=== PATIENT | male | born 2000 | race Caucasian/White ===

== ENCOUNTER 2021-10-08 12:09 | Emergency (ER) | payer OTHER ==
[2021-10-08 13:31] LABS: BASOPHILS % (AUTO) 0.6 %; EOSINOPHILS # (AUTO) 0.3 10^3/uL (0.0-0.7); EOSINOPHILS % (AUTO) 4.6 %; HCT - HEMATOCRIT 42.7 % (42.0-52.0); HGB - HEMOGLOBIN 15.3 g/dL (14.0-18.0); LYMPHOCYTES # (AUTO) 1.7 10^3/uL (1.5-3.5); LYMPHOCYTES % (AUTO) 23.1 %; MEAN CORPUSCULAR HEMOGLOBIN 29.5 pg (27.0-31.0); MEAN CORPUSCULAR HGB CONC 35.8 g/dL (32.0-36.0); MEAN CORPUSCULAR VOLUME 82.3 fL (80.0-94.0); MEAN PLATELET VOLUME 10.5 fL (7.4-11.4); MONOCYTES # (AUTO) 0.5 10^3/uL (0.0-1.0); MONOCYTES % (AUTO) 6.9 %; NEUTROPHILS # (AUTO) 4.7 10^3/uL (1.5-6.6); NEUTROPHILS % (AUTO) 64.5 %; PLT - PLATELET COUNT 269 10^3/uL (130-450); RED BLOOD COUNT 5.19 10^6/uL (4.70-6.10); RED CELL DISTRIBUTION WIDTH 11.9 % (12.0-15.0); WHITE BLOOD COUNT 7.2 x10^3/uL (4.8-10.8)
[2021-10-08 13:40] LABS: BILIRUBIN,URINE NEGATIVE (NEGATIVE); GLUCOSE, URINE (UA) NEGATIVE (NEGATIVE); KETONES,URINE (UA) NEGATIVE (NEGATIVE); LEUKOCYTE ESTERASE, URINE NEGATIVE (NEGATIVE); NITRITE,URINE NEGATIVE (NEGATIVE); OCCULT BLOOD,URINE NEGATIVE (NEGATIVE); PROTEIN,URINE NEGATIVE (NEGATIVE); UROBILINOGEN,URINE 0.2 (NORMAL) E.U./dL (NORMAL)
[2021-10-08 13:41] LABS: CLARITY,URINE CLEAR (CLEAR)
[2021-10-08 13:44] LABS: ALBUMIN 4.4 g/dL (3.2-5.5); ALBUMIN/GLOBULIN RATIO 1.6 (1.0-2.2); BILIRUBIN,TOTAL 1.1 mg/dL (0.2-1.0); CALCIUM 9.6 mg/dL (8.5-10.3); CREATININE 0.9 mg/dL (0.6-1.2); POTASSIUM 4.2 mmol/L (3.5-5.0); TOTAL PROTEIN 7.1 g/dL (6.7-8.2)
--- NOTE | 2021-10-08 14:22 | ED Physician Documentation ---
History of Present Illness - Stated complaint Stated Complaint: ABD PX,DIARRHEA - Chief complaint Chief Complaint: Abd Pain - Additonal information Additional information: 20-year-old male presents emergency department for evaluation of upper abdominal pain and diarrhea. Symptoms began this AM. He has had no fevers or vomiting. He took a dose of Pepto-Bismol as well as ibuprofen and feels mostly resolved. 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 The sick line told him he needed emergency department evaluation. At this time he feels better and would like to be discharged home Denies any pertinent past medical or surgical history. Takes no prescribed medications Review of Systems Constitutional: denies: Fever, Chills Nose: reports: Reviewed and negative Cardiac: reports: Reviewed and negative Respiratory: reports: Reviewed and negative GI: reports: Abdominal Pain, Diarrhea : reports: Reviewed and negative Skin: reports: Reviewed and negative Musculoskeletal: reports: Reviewed and negative PD PAST MEDICAL HISTORY - Allergies Allergies/Adverse Reactions: Allergies Allergy/AdvReac Type Severity Reaction Status Date / Time No Known Drug Allergies Allergy Verified 10/08/21 12:58 PD ED PE NORMAL - General General: Alert and oriented X 3, No acute distress, Well developed/nourished - HEENT HEENT: Moist mucous membranes - Neck Neck: Supple, no meningeal sign, No adenopathy - Cardiac Cardiac: RRR, No murmur - Respiratory Respiratory: No respiratory distress, Clear bilaterally - Abdomen Abdomen: Normal bowel sounds, Soft, Non tender (No abdominal tenderness elicited with light or deep palpation or percussion) - Male Male : Deferred - Back Back: No CVA TTP - Derm Derm: Normal color, Warm and dry - Extremities Extremities: No deformity, No tenderness to palpate, Normal ROM s pain - Neuro Neuro: Alert and oriented X 3, [employer] member other ranks 2-12 intact Eye Opening: Spontaneous Motor: Obeys Commands Verbal: Oriented GCS Score: 15 Results - Vitals Vitals: Vital Signs - 24 hr 10/08/21 12:55 Temperature 36.2 C L Heart Rate 69 Respiratory 16 Rate Blood Pressure 144/84 H O2 Saturation 99 Oxygen O2 Source Room air - Labs Labs: Laboratory Tests 10/08/21 10/08/21 10/08/21 13:24 13:24 13:30 WBC 7.2 RBC 5.19 Hgb 15.3 Hct 42.7 MCV 82.3 MCH 29.5 MCHC 35.8 RDW 11.9 L Plt Count 269 MPV 10.5 Neut # (Auto) 4.7 Lymph # (Auto) 1.7 [place] # (Auto) 0.5 Eos # (Auto) 0.3 Baso # (Auto) 0.0 Absolute Nucleated RBC 0.00 Nucleated RBC % 0.0 Sodium 140 Potassium 4.2 Chloride 103 Carbon Dioxide 29 Anion Gap 8.0 BUN 12 Creatinine 0.9 Estimated GFR (MDRD) 107 Glucose 98 Calcium 9.6 Total Bilirubin 1.1 H AST 30 ALT 60 Alkaline Phosphatase 64 Total Protein 7.1 Albumin 4.4 Globulin 2.7 Albumin/Globulin Ratio 1.6 Lipase 27 Urine Color YELLOW Urine Clarity CLEAR Urine pH 7.0 Ur Specific [place] 1.020 Urine Protein NEGATIVE Urine Glucose (UA) NEGATIVE Urine Ketones NEGATIVE Urine Occult Blood NEGATIVE Urine Nitrite NEGATIVE Urine Bilirubin NEGATIVE Urine Urobilinogen 0.2 (NORMAL) Ur Leukocyte Esterase NEGATIVE Ur Microscopic Review NOT INDICATED Urine Culture Comments NOT INDICATED PD MEDICAL DECISION MAKING - ED course Complexity details: considered differential, d/w patient ED course: Well-appearing 20-year-old male presents emergency department for evaluation of upper abdominal discomfort and diarrhea that began this morning. Symptoms fully resolved following a dose of Pepto-Bismol and ibuprofen. Screening labs are entirely unremarkable. His abdominal exam is also benign with no tenderness elicited. I suspect he likely had a mild viral enteritis as the cause of his symptoms. Given unremarkable abdominal exam and labs will defer advanced imaging. Routine conservative care and emergent return precautions were discussed Departure - Departure Disposition: 01 Home, Self Care Clinical Impression: Upper abdominal pain Diarrhea Qualifiers: Diarrhea type: unspecified type Qualified Code(s): R19.7 - Diarrhea, unspecified Comments: Jason you were seen today in the emergency department because you woke up this morning with some upper abdominal discomfort and then had some diarrhea. You did the right thing by taking ibuprofen and Pepto-Bismol. I suspect they have a mild virus that is because the diarrhea. I expect that this is going to resolve over the next few days. You can continue the Pepto-Bismol if you found it helpful. Over the next 24 hours recommend clear liquids then slowly advance your diet with bananas, rice, applesauce and toast. Return to the emergency department for significantly worsening symptoms, bloody stools, severe abdominal pain or any uncontrolled vomiting
[2021-10-08 14:35] VITALS: BP 137/84
== END 2021-10-08 14:35 | disposition home or self-care (01) ==
LOC: ED 12:09
DX: R10.10 Upper abdominal pain, unspecified (principal); R19.7 Diarrhea, unspecified
CPT/HCPCS: 36415; 80053; 81001; 81003; 83690; 85025; 87086; 99282; 99283

== ENCOUNTER 2022-05-12 09:08 | Outpatient (CLI) | payer OTHER ==
--- NOTE | 2022-05-12 11:50 | MRI Report ---
PROCEDURE: KNEE WO - RT INDICATIONS: LEFT KNEE PATELLAR DISLOCATION, RT KNEE PAIN TECHNIQUE: Noncontrast sagittal PD fast spin echo and T2 fast spin echo with fat saturation, sagittal 3-D spoile d GE with fat saturation; coronal T1 spin echo and PD fast spin echo with fat saturation, and axial P D fast spin echo with fat saturation through the knee. COMPARISON: None. FINDINGS: Image quality: Excellent. Anterior cruciate ligament: Intact. Posterior cruciate ligament: Intact. Medial collateral ligament: Intact. Lateral collateral ligament: Intact. Medial meniscus: Linear intermediate signal intensity is seen in the body of the medial meniscus ext ending to the middle third of the femoral articular surface, which is favored to represent a horizont al oblique meniscal tear rather than intrasubstance degeneration. Lateral meniscus: Intact. Medial and lateral tendons: The semimembranosus tendon insertions appear intact. Visualized portion s of the pes anserinus tendons appear normal. The popliteus tendon appears intact. Iliotibial band appears normal. Anterior structures: Mild patella maxx. The distal quadriceps tendon is grossly intact. A congenital ly shallow trochlear groove is seen with lateral patellar tilting and lateral patellar subluxation. T he tibial tubercle-trochlear groove distance measures approximately 2.2 cm. No significant edema in t he infrapatellar fat pad. Bones: No acute trabecular bone injury or fracture. Medial femorotibial cartilage: Intact. Lateral femorotibial cartilage: Intact. Patellofemoral cartilage: Full-thickness cartilage fissuring is seen at the median ridge/lateral fac et of the patella with focal subchondral cystic changes. There is focal full-thickness cartilage loss at the lateral aspect of the lateral femoral trochlea superiorly with mild subchondral cystic change s. Soft tissues: There is a small joint effusion. There is no medial popliteal cyst. The musculature s urrounding the knee is normal in bulk. IMPRESSION: 1.Horizontal oblique tear at the body of the medial meniscus extending to the middle third of the fem oral articular surface. 2.Mild patella maxx. 3.Congenitally shallow trochlear groove with lateral patellar tilting and moderate lateral patellar s ubluxation. Tibial tubercle-trochlear groove distance is elevated at 2.2 cm. 4.Focal full-thickness cartilage loss at the lateral femoral trochlea with subchondral cystic changes . Full-thickness cartilage fissuring is also seen at the median ridge/lateral facet of the patella wi th subchondral cystic changes. 5.No acute trabecular bone injury. Cruciate and collateral ligaments are intact. 6.Small joint effusion. Reviewed by: Germán Lee MD on 05/12/2022 11:49 AM PST Approved by: Germán Lee MD on 05/12/2022 11:49 AM PST Station ID: [id number]
--- NOTE | 2022-05-12 11:51 | MRI Report ---
PROCEDURE: KNEE WO - LT INDICATIONS: LEFT KNEE PATELLAR DISLOCATION, RT KNEE PAIN TECHNIQUE: Noncontrast sagittal PD fast spin echo and T2 fast spin echo with fat saturation, sagittal 3-D spoile d GE with fat saturation; coronal T1 spin echo and PD fast spin echo with fat saturation, and axial P D fast spin echo with fat saturation through the knee. COMPARISON: None. FINDINGS: Image quality: Excellent. Anterior cruciate ligament: Intact. Posterior cruciate ligament: Intact. Medial collateral ligament: Intact. Lateral collateral ligament: Intact. Medial meniscus: Intact. Lateral meniscus: Intact. Medial and lateral tendons: The semimembranosus tendon insertions appear intact. Visualized portion s of the pes anserinus tendons appear normal. The popliteus tendon appears intact. Iliotibial band appears normal. Anterior structures: There is mild patella maxx. A congenitally shallow trochlear groove is seen with lateral patellar tilting and mild lateral patellar subluxation. The tibial tubercle-trochlear groove distance measures approximate 2.3 cm. The medial patellofemoral ligament appears attenuated, most li cassie secondary to prior partial organ tearing. No significant edema is seen in the infrapatellar fat pad. Bones: Mild osseous edema is seen at the anterolateral aspect of the lateral femoral condyle, consis tent with impaction trabecular bone injury related to prior episode of transient lateral patellar dis location. No significant edema is seen within the medial patella. Eccentric osseous lesion within the posterior aspect of the proximal tibial metadiaphysis with foci of [id number] signal intersper sed with fat is most likely a healing nonossifying fibroma or tug lesion. No aggressive features are seen. Medial femorotibial cartilage: Intact. Lateral femorotibial cartilage: Intact. Patellofemoral cartilage: There is full-thickness cartilage fissuring at the median ridge/lateral fa cet of the patella with focal subchondral edema. Soft tissues: There is a small joint effusion. There is no medial popliteal cyst. The musculature s urrounding the knee is normal in bulk. IMPRESSION: 1.Mild impaction trabecular bone injury at the anterolateral aspect of the lateral femoral condyle is most likely sequela of an episode of transient lateral patellar dislocation. No significant medial p atellar edema. 2.Attenuation of the medial patellofemoral ligament is most likely secondary to chronic high-grade pa rtial versus complete tearing. 3.Mild patella maxx. 4.Congenitally shallow trochlear groove with lateral patellar tilting and moderate lateral patellar s ubluxation. Tibial tubercle-trochlear groove distance is elevated at 2.3 cm. 5.Focal full-thickness cartilage fissuring at the median ridge/lateral facet of the patella with foca l subchondral edema. 6.Nonaggressive osseous lesion at the posterior aspect of the proximal tibial metadiaphysis is most l ikely a healing nonossifying fibroma or tug lesion. 7.Small joint effusion. Reviewed by: Germán Lee MD on 05/12/2022 11:50 AM PST Approved by: Germán Lee MD on 05/12/2022 11:50 AM PST Station ID: [id number]
== END 2022-05-12 09:09 | disposition home or self-care (01) ==
LOC: DI 09:08
PROVIDERS: ATTEND Student in an Organized Health Care Education/Training Program
DX: S89.82XA Other specified injuries of left lower leg, initial encounter (principal); M25.462 Effusion, left knee; S83.241A Other tear of medial meniscus, current injury, right knee, initial encounter; M22.41 Chondromalacia patellae, right knee; M25.461 Effusion, right knee